=== PATIENT | female | born 1945 | race Caucasian/White ===

== ENCOUNTER 2020-06-22 16:55 | Emergency (ER) | payer MEDICARE, OTHER ==
[~2020-06-22] VITALS: Ht 160 cm; Wt 93.4 kg
[~2020-06-22 16:55] MED LIST: ATENOLOL50 MG PO; BONINE25 MG PO; FISH OIL 1,2001 EAC1 PO; FOSAMAX70 MG PO; HYZAAR 100-251 EACH PO; SIMVASTATIN10 MG PO
[2020-06-22] MEDS ORDERED: METOPROLOL SUCC50 MG PO (17:06)
[2020-06-22] MEDS ORDERED: HYDROCHLOROTHIA25 MG PO (17:06)
[2020-06-22] MEDS ORDERED: LOSARTAN POTAS100 MG PO (17:07)
[2020-06-22] MEDS ORDERED: K-TAB ER20 MEQ PO (18:58)
--- NOTE | 2020-06-24 11:38 | EKG ---
[facility] [address] [facility] [place] [address] Signed Atrial fibrillation with rapid ventricular response Marked ST abnormality, possible lateral subendocardial injury Abnormal ECG When compared with ECG of 10-APR-2016 08:57, Atrial fibrillation has replaced Sinus rhythm Vent. rate has increased BY [address] now depressed in Anterolateral leads T wave inversion now evident in Lateral leads Confirmed by TOMASA ALBARADO DO ([id number]) on 06/24/2020 11:37:57 AM Electronically Signed By: TOMASA ALBARADO DO 06/24/20 1138 PATIENT NAME: PAUL TRAMMELL Electrocardiogram DATE OF : 47 PHYSICIAN: TOMASA ALBARADO DO REPORT #: [id number] REPORT IS CONFIDENTIAL AND NOT TO BE RELEASED WITHOUT AUTHORIZATION
== END 2020-06-22 20:58 | disposition home or self-care (01) ==
LOC: ED 16:55
DX: I48.91 Unspecified atrial fibrillation (principal); E87.6 Hypokalemia; I10 Essential (primary) hypertension; Z87.891 Personal history of nicotine dependence; Z88.8 Allergy status to other drugs, medicaments and biological substances; Z79.899 Other long term (current) drug therapy
CPT/HCPCS: 71045; 80053; 83735; 84484; 85025; 93005; 93010; 99285-25

== ENCOUNTER 2020-10-19 08:13 | Emergency (ER) | payer MEDICARE, OTHER ==
[~2020-10-19] VITALS: Ht 160 cm; Wt 93.4 kg
[~2020-10-19 08:13] MED LIST changes: +HYDROCHLOROTHIA25 MG PO; +K-TAB ER20 MEQ PO; +LOSARTAN POTAS100 MG PO; +METOPROLOL SUCC50 MG PO
[2020-10-19] MEDS ORDERED: XARELTO20 MG PO (08:49)
[2020-10-19] MEDS ORDERED: LIDODERM1 EACH TD (09:38)
[2020-10-19] MEDS ORDERED: LORAZEPAM1 MG PO (09:38)
== END 2020-10-19 10:50 | disposition home or self-care (01) ==
LOC: ED 08:13
DX: M62.830 Muscle spasm of back (principal); I10 Essential (primary) hypertension; I48.91 Unspecified atrial fibrillation; Z87.891 Personal history of nicotine dependence; Z88.8 Allergy status to other drugs, medicaments and biological substances; Z79.899 Other long term (current) drug therapy; Z79.01 Long term (current) use of anticoagulants
CPT/HCPCS: 72131; 81001; 96372; 99284-25; A9270-GY; J1885

== ENCOUNTER 2021-04-21 08:00 | Day surgery (SDC) | payer MEDICARE, OTHER ==
[~2021-04-21] VITALS: Ht 160 cm; Wt 95.5 kg
[~2021-04-21 08:00] MED LIST changes: +LIDODERM1 EACH TD; +LORAZEPAM1 MG PO; +XARELTO20 MG PO
--- NOTE | 2021-04-21 12:40 | NUR ---
04/21/21 1240 Logan Oakes REORIENTED TO TIME AND SITUATION. DENIES PAIN OR NAUSEA.
--- NOTE | 2021-04-24 07:45 | OR ---
[facility] [address] [place], [place] [address] Signed DATE OF OPERATION: 04/21/2021 SURGEON: Sam Bowles MD PREOPERATIVE DIAGNOSES: 1. Iron-deficiency anemia. 2. Hemorrhoidectomy in 1960s. 3. Intermittent rectal bleeding. 4. Small internal external hemorrhoids. 5. Minimal diverticulosis. 6. Hyperplastic rectal polyps. 7. Melena while on Xarelto for paroxysmal atrial fibrillation. 8. Transfusion 2 units packed red blood cells. POSTOPERATIVE DIAGNOSES: 1. Small hiatal hernia. 2. Mild diffuse gastritis. 3. Minimal sigmoid diverticulosis. 4. A 5 mm polyp at 70 cm. 5. Persistent significant distal sigmoid angulation. PROCEDURES: 1. EGD with CLOtest and biopsy of the antrum. 2. Colonoscopy with hot biopsy. ESTIMATED BLOOD LOSS: None. INDICATIONS: Stone is a 75-year-old female asked to see me urgently for both upper and lower endoscopy. I helped Stone with her initial screening colonoscopy back in 2016 at the age of 69. She had hemorrhoid surgery back in the 1960s. She does have intermittent rectal bleeding. She had small internal and external hemorrhoids. She has minimal diverticulosis. She had two tiny hyperplastic polyps taken out of the rectum. We also noted severe angulation in the distal sigmoid colon at around 17 cm, this took at least 10 minutes and 11 mg of Versed and 150 mcg of fentanyl to cover her case. We had asked her to follow up in 10 years. More recently, she was found to be in atrial fibrillation. We can see she is in sinus rhythm today as well as her preoperative EKG. She had been started on Xarelto by her primary care provider. She then experienced melena. She was having dyspnea on exertion. She ended up with 2 units of packed red Electronically Signed By: SAM BOWLES MD 04/24/21 0745 PATIENT NAME: STONE TRAMMELL OPERATIVE REPORT DATE OF : 47 REPORT #: [id number] PHYSICIAN: SAM BOWLES MD PCP: ILDEFONSO TY DO REPORT IS CONFIDENTIAL AND NOT TO BE RELEASED WITHOUT AUTHORIZATION [facility] [address] [place], [place] [address] Signed blood cells on March 09, 2021. Of course, the Xarelto had been stopped. She continues on oral iron therapy. Overall, she told me she feels much better. She has been driving herself around town. She has also been working with her transport analyst, Dr. Carol Haywood. She told me the echocardiogram was negative. She also finished her chemical stress test and her Holter monitor. We still do not have those final reports, it is apparently they were not signed off just yet. Her stool been back to brown, but when she start the iron of course it returned to black. She has been on omeprazole. She does not take any aspirin or NSAIDs. She has never had a history of peptic ulcer disease. In the office, I gave her pamphlets on both upper and lower endoscopy. We had reviewed those together in detail. She recalls the nature of these tests. There is risk including, but not limited to gas bloating, crampy abdominal pain, bleeding, perforation requiring surgery, and missed diagnosis. We also discussed the need for monitored anesthesia care given her previous situation as well as recurrent medical issues. She had expressed understanding and wished to proceed. DESCRIPTION OF PROCEDURE: Stone was taken into our endoscopy suite and placed in the supine semi-recumbent position. The posterior oropharynx was anesthetized with lidocaine spray. A bite block was utilized for the case. She was given monitored anesthesia care per our nurse behavioral therapy coordinator. The adult gastroscope was introduced and advanced quite readily out into the third portion of the duodenum without difficulty. Her duodenum and pyloric channel were completely unremarkable. Her stomach showed very mild diffuse erythematous changes. There were no ulcerations in the pyloric bulb nor the stomach. No old or fresh blood in the stomach. We took biopsies of the antrum for pathologic review as well as CLOtest. Upon retroflexion of scope, we can see a small hiatal hernia. The scope was withdrawn up through the area of the GE junction, which was compliant without stricture. There was no gastric or esophageal varices. No evidence of a Priya-Bass tear. Her Z-line is nearly intact. There was no Self's mucosa. There was no distal esophagitis. The middle and upper esophagus were unremarkable. After this, the gas was suctioned out and the gastroscope removed. Stone tolerated her upper endoscopy quite well. Stone was then rotated into the left lateral decubitus position. She was maintained on IV propofol per nurse behavioral therapy coordinator. A digital rectal exam was performed and this was unremarkable. The adult colonoscope was introduced and advanced under direct visualization of camera. With the help of the propofol, transgressing the sigmoid colon was much easier, it only took about 3-5 minutes on this occasion. After that, the scope traveled up nicely into the cecum itself. Her prep was quite excellent. We could easily see her appendiceal orifice in her ileocecal valve. The scope was then slowly withdrawn. We took several pictures throughout for photodocumentation. Again, she has some diverticula in the sigmoid colon, they were moderate in size, few in number, and scattered about. We also saw a small polyp at 70 cm easily removed and destroyed Electronically Signed By: SAM BOWLES MD 04/24/21 0745 PATIENT NAME: STONE TRAMMELL OPERATIVE REPORT DATE OF : 47 REPORT #: [id number] PHYSICIAN: SAM BOWLES MD PCP: ILDEFONSO TY DO REPORT IS CONFIDENTIAL AND NOT TO BE RELEASED WITHOUT AUTHORIZATION [facility] [address] [place] [id number] Signed completely with hot biopsy forceps. The rectum was unremarkable. Upon retroflexion of scope, there was very little in the way of internal hemorrhoid tissue. After this, the gas was suctioned out, the colonoscope removed. Stone tolerated the procedure quite well. RECOMMENDATIONS: Stone can follow up in my office in 7 to 14 days to review her results. It appears should she can resume her anticoagulation in one week. If there is any ongoing question, she certainly could have a small bowel follow-through or a capsule endoscopy. Sam Bowles MD ALB/MODL /[id number] cc: MD Ildefonso Carvalho DO Patient Chart Carol Haywood DO Copies: SAM BOWLES MD, ARIAN DO ~ Electronically Signed By: SAM BOWLES MD 04/24/21 0745 PATIENT NAME: STONE TRAMMELL OPERATIVE REPORT DATE OF : 47 REPORT #: [id number] PHYSICIAN: SAM BOWLES MD PCP: ILDEFONSO TY DO REPORT IS CONFIDENTIAL AND NOT TO BE RELEASED WITHOUT AUTHORIZATION
--- NOTE | 2021-04-25 16:20 | PATH ---
[facility] [address] [place], [place] [address] Signed SPECIMEN(S): A ANTRUM/PYLORUS BIOPSY SPECIMEN(S): B POLYP AT 70 CM SPECIMEN SOURCE: A. ANTRUM/PYLORUS BIOPSY B. POLYP AT 70 CM CLINICAL HISTORY: Anemia; rectal bleeding; hemorrhoids FINAL PATHOLOGIC DIAGNOSIS: A. Stomach, antrum, biopsy: - Antral mucosa with chronic, inactive gastritis and focal complete intestinal metaplasia. - Negative for Helicobacter organisms on HE stain. - Negative for dysplasia or malignancy. - See comment. B. Colon, polyp at 70 cm, polypectomy: - Tubular adenoma. - Negative for high-grade dysplasia or malignancy. COMMENT: Regarding specimen A: An H. pylori immunohistochemical stain is pending and will be reported in an addendum. NAL:cml:C2NR MICROSCOPIC EXAMINATION: Histologic sections of all submitted blocks are examined by light microscopy. These findings, together with the gross examination, support the pathologic diagnosis. GROSS DESCRIPTION: Two specimens are received in two containers, labeled "TB." A. The specimen, labeled "TB, antrum biopsy," is received in formalin and consists of one wheeler soft tissue fragment that measures 0.4 cm in greatest dimension. The specimen is entirely submitted in cassette (A1). B. The specimen, labeled "TB, polyp at 70 cm," is received in formalin and consists of one wheeler soft tissue fragment that measures 0.2 cm in greatest dimension. The specimen is entirely submitted in cassette (B1). PATIENT NAME: TRAMMELLPAUL HELMS PATHOLOGY DATE OF : 47 REPORT #: [id number] PHYSICIAN: ANTWON MATTHEWS PCP: MONSTER TY DO REPORT IS CONFIDENTIAL AND NOT TO BE RELEASED WITHOUT AUTHORIZATION [facility] [address] [place] [address] Signed AI (under the direct supervision of a pathologist) The Gross Description was prepared using a voice recognition system. The report was reviewed for accuracy; however, sound-alike word errors, addition and/or deletions may occur. If there is any question about this report, please contact Client Services. PERFORMING LABORATORY: The technical component was performed [place] [address] (Senior Painter: Jyoti Murphy MD; CLIA# [id number]). Professional [facility], [address] [place] [address] (CLIA# [id number]). Diagnostician: Kat Montero MD Pathologist Electronically Signed 04/25/2021 Copies: ~ PATIENT NAME: PAUL TRAMMELL PATHOLOGY DATE OF : 47 REPORT #: [id number] PHYSICIAN: [facility] PCP: MONSTER TY DO REPORT IS CONFIDENTIAL AND NOT TO BE RELEASED WITHOUT AUTHORIZATION
== END 2021-04-21 13:18 | disposition home or self-care (01) ==
LOC: OPS 08:00 → DS 08:00 → OPS 10:35 → DS 12:05 → OPS 12:35 → DS 13:00 → OPS 13:18
PROVIDERS: ATTEND Colon & Rectal Surgery
PROC: 0DBE8ZX Excision of Large Intestine, Via Natural or Artificial Opening Endoscopic, Diagnostic (ICD-10-PCS; principal; 2021-04-21 10:35)
PROC: 0DB78ZX Excision of Stomach, Pylorus, Via Natural or Artificial Opening Endoscopic, Diagnostic (ICD-10-PCS; 2021-04-21 10:35)
DX: K29.50 Unspecified chronic gastritis without bleeding (principal); D12.6 Benign neoplasm of colon, unspecified; K44.9 Diaphragmatic hernia without obstruction or gangrene; K57.30 Diverticulosis of large intestine without perforation or abscess without bleeding; K29.70 Gastritis, unspecified, without bleeding; I48.0 Paroxysmal atrial fibrillation; I10 Essential (primary) hypertension; K64.0 First degree hemorrhoids; E78.5 Hyperlipidemia, unspecified; M81.0 Age-related osteoporosis without current pathological fracture; Z86.010 Personal history of colon polyps; Z87.891 Personal history of nicotine dependence
CPT/HCPCS: 36415; 85610; 87077; J2704

== ENCOUNTER 2022-04-18 16:37 | Emergency (ER) | payer MEDICARE, OTHER ==
[~2022-04-18] VITALS: Ht 162.6 cm; Wt 98.0 kg
[2022-04-18] MEDS ORDERED: ELIQUIS5 MG PO (17:16)
[2022-04-18] MEDS ORDERED: OMEPRAZOLE20 MG PO (17:17)
--- NOTE | 2022-04-18 21:43 | EKG ---
[facility] [address] [place] [address] Signed Normal sinus rhythm Nonspecific ST and T wave abnormality Abnormal ECG When compared with ECG of 17-APR-2021 16:31, Vent. rate has increased BY 34 BPM Confirmed by Saúl Goodson MD () on 04/18/2022 9:43:27 PM Electronically Signed By: SAÚL GOODSON MD 04/18/222142 PATIENT NAME: PAUL TRAMMELL Electrocardiogram DATE OF : 47 PHYSICIAN: SAÚL GOODSON MD REPORT #: [id number] REPORT IS CONFIDENTIAL AND NOT TO BE RELEASED WITHOUT AUTHORIZATION
== END 2022-04-18 19:58 | disposition home or self-care (01) ==
LOC: ED 16:37
DX: I48.91 Unspecified atrial fibrillation (principal); I10 Essential (primary) hypertension; Z87.891 Personal history of nicotine dependence; Z88.8 Allergy status to other drugs, medicaments and biological substances; Z79.899 Other long term (current) drug therapy
CPT/HCPCS: 36415; 71045; 80053; 83735; 84484; 85025; 93005; 93010; 99285-25

== ENCOUNTER 2024-01-30 13:42 | Emergency (ER) | payer MEDICARE, OTHER ==
[~2024-01-30] VITALS: Ht 162.6 cm; Wt 90.3 kg
[~2024-01-30 13:42] MED LIST changes: +ELIQUIS5 MG PO; +OMEPRAZOLE20 MG PO
[2024-01-30] MEDS ORDERED: LIDOCAINE HCL 4% 1 EACH PATCH TD ONE (14:15)
[2024-01-30] MEDS ORDERED: OXYCODONE/APAP 5/325 TAB PO ONE (14:15)
[2024-01-30] MEDS ORDERED: PERCOCET 5-3251 EACH PO (15:00)
[2024-01-30 15:16] VITALS: BP 135/62
[2024-01-30] MEDS ORDERED: LIDOCAINE PATCH REMOVAL 1 EA TD SCH (21:00)
== END 2024-01-30 15:17 | disposition home or self-care (01) ==
LOC: ED 13:42
DX: S29.9XXA Unspecified injury of thorax, initial encounter (principal); I10 Essential (primary) hypertension; Z87.891 Personal history of nicotine dependence; Z88.8 Allergy status to other drugs, medicaments and biological substances; Z79.899 Other long term (current) drug therapy; Z79.01 Long term (current) use of anticoagulants; X50.0XXA Overexertion from strenuous movement or load, initial encounter
CPT/HCPCS: 71046; 99283-25; A9270

== ENCOUNTER 2024-08-10 13:23 | Emergency (ER) | payer MEDICARE, OTHER ==
[~2024-08-10] VITALS: Ht 162.6 cm; Wt 96.7 kg
[~2024-08-10 13:23] MED LIST changes: +CIPROFLOXACIN500 MG PO; +DILTIAZEM ER240 MG PO; +IRBESARTAN-HCT1 EACH PO; +IRON325 M1 PO; +LANOXIN250 MCG PO; +METFORMIN HCL500 M1 PO; +METOPROLOL SUC100 MG PO; +METOPROLOL TART25 MG PO; +PERCOCET 5-3251 EACH PO; +ROSUVASTATIN CA10 MG PO
[2024-08-10 13:54] LABS: BASOPHILS 0.4 % (0.1-1.2); EOSINOPHILS 1.4 % (0.7-5.8); HEMATOCRIT 34.6 % (34.1-44.9); HEMOGLOBIN 10.9 g/dL (11.2-15.7); LYMPHOCYTES 17.5 % (19.3-51.7); MCH 26.7 PG (25.6-32.2); MCHC 31.5 g/dL (32.2-35.5); MCV 84.6 fL (79.4-94.8); MONOCYTES 8.2 % (4.7-12.5); NEUTROPHILS 70.9 % (34.0-71.1); PLATELET COUNT 346 K/uL (182-369); RBC 4.09 M/uL (3.93-5.22)
[2024-08-10] MEDS ORDERED: SODIUM CHLORIDE 0.9% 1,000 ML IV ONE (14:00)
[2024-08-10] MEDS ORDERED: METOPROLOL TARTRATE 5 MG/5 ML VIAL IV ONE (14:00)
[2024-08-10 14:13] LABS: ALBUMIN 2.4 g/dL (3.4-5.0); ALBUMIN/GLOBULIN RATIO 0.63 (1.1-2.4); ANION GAP 10.7 (7-21); BILIRUBIN, TOTAL 0.4 mg/dL (0.2-1.0); BUN/CREATININE RATIO 8.57 (6.0-28.6); CALCIUM 8.4 mg/dL (8.5-10.1); CREATININE, SERUM 1.05 mg/dL (0.55-1.02); MAGNESIUM 2.1 mg/dL (1.8-2.4); POTASSIUM 3.7 mmol/L (3.5-5.1); PROTEIN, TOTAL 6.2 g/dL (6.4-8.2)
[2024-08-10 14:28] LABS: DIGOXIN 1.8 ng/dL (0.9-2.0)
[2024-08-10] MEDS ORDERED: METOPROLOL TARTRATE 5 MG/5 ML VIAL IV SCH (15:30)
--- OUTSIDE RECORDS SUMMARY | 2024-08-10 16:11 | XMS ---
PreManage Notification: PAUL TRAMMELL Security Curriculum Assistant Principal Events No recent Security Events currently on file CRITERIA MET - [facility] - 2 Visits in 30 Days CARE PROVIDERS There are no care providers on record at this time. Davin has no Care Guidelines for this patient. [facility] (12 MO.) [facility] NOTE: Visits indicate total known visits. ED/[facility] VISIT TRACKING (12 MO.) 08/10/2024 13:23 [facility] [place] TYPE: Emergency COMPLAINT: - HEART RATE ISSUE 07/31/2024 20:36 [facility] [place] TYPE: Emergency COMPLAINT: - WEAKNESS 01/30/2024 13:43 [facility] [place] TYPE: Emergency COMPLAINT: - FLANK PAIN DIAGNOSES: - Allergy status to other drugs, medicaments and biological substances - Essential (primary) hypertension - MCFP (current) use of anticoagulants - Other buttermaker (current) drug therapy - Overexertion from strenuous movement or load, initial encounter - Personal history of nicotine dependence - Pleurodynia - Unspecified injury of thorax, initial encounter INPATIENT VISIT TRACKING (12 MO.) 07/31/2024 20:37 [facility] [place] TYPE: Critical Care COMPLAINT: - AFIB RVR DIAGNOSES: - Acquired absence of other specified parts of digestive tract - Acquired absence of other specified parts of digestive tract - Cataract extraction status, left eye - Cataract extraction status, left eye - Cataract extraction status, right eye - Cataract extraction status, right eye - Diarrhea, unspecified - Essential (primary) hypertension - Essential (primary) hypertension - Gastro-esophageal reflux disease without esophagitis - Gastro-esophageal reflux disease without esophagitis - Hyperlipidemia, unspecified - Hyperlipidemia, unspecified - Hypokalemia - Hypokalemia - Hypomagnesemia - Hypomagnesemia - Iron deficiency anemia, unspecified - Iron deficiency anemia, unspecified - long term care social worker (current) use of anticoagulants - long term care social worker (current) use of anticoagulants - long term care social worker (current) use of oral hypoglycemic drugs - long term care social worker (current) use of oral hypoglycemic drugs - Obstructive sleep apnea (adult) (pediatric) - Obstructive sleep apnea (adult) (pediatric) - Other buttermaker (current) drug therapy - Other buttermaker (current) drug therapy - Other specified postprocedural states - Other specified postprocedural states - Personal history of nicotine dependence - Personal history of nicotine dependence - Salmonella enteritis - Salmonella enteritis - Type 2 diabetes mellitus without complications - Type 2 diabetes mellitus without complications - Unspecified atrial fibrillation - Unspecified atrial fibrillation - Unspecified atrial fibrillation [email or web address]
[2024-08-10] MEDS ORDERED: METOPROLOL SUC200 MG PO (17:05)
[2024-08-10 17:15] VITALS: BP 145/82
--- NOTE | 2024-08-10 19:37 | EKG ---
[facility] [address] [facility] [place] [address] Signed Atrial fibrillation with rapid ventricular response Nonspecific ST and T wave abnormality Abnormal ECG When compared with ECG of 31-JUL-2024 20:36, Nonspecific T wave abnormality now evident in Inferior leads Confirmed by Inna Meade DO ([id number]) on 08/10/2024 7:37:22 PM Electronically Signed By: INNA MEADE DO 08/10/241936 PATIENT NAME: PAUL TRAMMELL Electrocardiogram DATE OF : 47 PHYSICIAN: INNA MEADE DO REPORT #: [id number] REPORT IS CONFIDENTIAL AND NOT TO BE RELEASED WITHOUT AUTHORIZATION
== END 2024-08-10 17:25 | disposition home or self-care (01) ==
LOC: ED 13:23
PROVIDERS: Emergency Medicine
DX: I48.91 Unspecified atrial fibrillation (principal); I10 Essential (primary) hypertension; Z87.891 Personal history of nicotine dependence; Z79.2 Long term (current) use of antibiotics; Z88.8 Allergy status to other drugs, medicaments and biological substances; Z79.899 Other long term (current) drug therapy; Z79.01 Long term (current) use of anticoagulants
CPT/HCPCS: 36415; 71045; 80053; 80162; 83735; 84484; 85025; 93005; 93010; 96361; 96374; 96376; 99285-25; J7030